=== PATIENT | male | born 1965 ===

== ENCOUNTER 2019-10-20 18:00 | Outpatient (CLI) | payer OTHER | END 2019-10-20 18:01 | disposition home or self-care (01) | LOC: SLEEPLAB 18:00 | PROVIDERS: ATTEND Physician Assistant | DX: G47.33 Obstructive sleep apnea (adult) (pediatric) (principal); E66.9 Obesity, unspecified; I10 Essential (primary) hypertension; I25.10 Atherosclerotic heart disease of native coronary artery without angina pectoris; I25.2 Old myocardial infarction; E11.9 Type 2 diabetes mellitus without complications | CPT/HCPCS: 95806 ==